=== PATIENT | female | born 1960 | race African-American/Black ===

== ENCOUNTER 2020-02-14 16:13 | Observation (INO) ==
[2020-02-14 16:59] LABS: Basophils % 0.2 % (0.0-0.8); Eosinophils # 0.1 10*3/uL (0.0-0.87); Eosinophils % 0.6 % (0.00-10.9); Hematocrit 40.1 VOL% (35.7-47.0); Hemoglobin 13.5 GM/DL (12.0-16.0); Immature Granulocytes % 0.5 %; Immature Granulocytes Absolute 0.04 #; Lymphocytes # 1.1 10*3/uL (1.4-4.0); Lymphocytes % 12.2 % (21.3-54.2); Mean Corpuscular HGB Conc 33.7 GM/DL (32-36); Mean Corpuscular Volume 85.9 FL (87-102); Mean Platelet Volume 11.7 FL (9.6-12.0); Monocytes % 12.5 % (1.7-12.7); Platelet Count 182 T/CUMM (130-400); Red Blood Count 4.67 MC/CUMM (3.8-5.5); Red Cell Distribution Width 12.5 % (9.3-17.3); White Blood Count 8.9 T/CUMM (4-12)
[2020-02-14 17:16] LABS: Alanine Aminotransferase 17 U/L (13-56); Albumin 3.2 G/DL (3.4-5.0); Alkaline Phosphatase 109 U/L (45-117); Aspartate Amino Transferase 24 U/L (0-37); Bilirubin,Total < 0.39 MG/DL (0.2-1.0); Blood Urea Nitrogen 13 MG/DL (7-18); Calcium 8.7 MG/DL (8.5-10.1); Estimated Glom Filtration Rate 110 ML/MIN; Glucose 83 MG/DL (74-106); Osmolality,Calculated 281.1 MOS/KG (273-304); Total Protein 6.8 G/DL (6.4-8.3)
[2020-02-14 17:43] LABS: PT Patient Result 10.9 SECS (9.8-11.9); Partial Thromboplastin Time 21.1 SECS (23.9-33.8)
[2020-02-14 18:10] LABS: Bilirubin,Urine Negative (Negative); Blood, Urine Negative (Negative); Glucose,Urine (UA) Negative (Negative); Ketones,Urine Negative (Negative); Nitrite,Urine Negative (Negative); Protein,Urine 30 MG/DL; RBC,Urine 1 /HPF (0-4); Urine Appearance CLEAR (Clear); Urine Color Straw (Yellow); Urine Specific Gravity 1.009 (1.001-1.035); Urine Urobilinogen < 2.0 EU/DL (0.2-1.0); WBC,Urine 2 /HPF (0-6)
[2020-02-14 18:17] LABS: Barbiturates Screen,Urine Negative (Negative); Benzodiazepines Screen,Urine Negative (Negative); Cannabinoid Screen,Urine Negative (Negative); Opiate Screen,Urine Negative (Negative); Phencyclidine Screen,Urine Negative (Negative)
[2020-02-14 18:34] LABS: Hypochromasia 1+; Microcytosis 1+
[2020-02-14 18:35] LABS: Platelet Estimate Normal
[2020-02-14] MEDS ORDERED: EPINEPHrine 1 MG/ML VIAL IM PRN (20:16)
[2020-02-14] MEDS ORDERED: predniSONE 20 MG TABLET PO STA (20:19)
[2020-02-14] MEDS ORDERED: SODIUM CHLORIDE 0.9% 1,000 ML IV SCH (20:30)
[2020-02-14] MEDS ORDERED: DEXTROSE 50% 25 GM/50 ML VIAL IV PRN (21:00)
[2020-02-14] MEDS ORDERED: ONDANSETRON 4 MG/2 ML VIAL IV PRN (21:00)
[2020-02-14] MEDS ORDERED: ENOXAPARIN 40 MG/0.4 ML SYRINGE SUBCUT SCH (21:00)
[2020-02-14] MEDS ORDERED: GLUCAGON 1 MG VIAL IM PRN (21:00)
[2020-02-14] MEDS ORDERED: ACETAMINOPHEN 325 MG TABLET PO PRN (21:00)
[2020-02-14] MEDS: diphenhydrAMINE CAP 25 MG CAPSULE PO SCH (22:21)
[2020-02-14] MEDS: FAMOTIDINE 20 MG TABLET PO SCH (22:22)
[2020-02-15] MEDS: diphenhydrAMINE CAP 25 MG CAPSULE PO SCH ×2 (04:22→09:51)
[2020-02-15 05:53] LABS: Basophils # 0.1 10*3/uL (0.0-0.2); Basophils % 1.1 % (0.0-0.8); Eosinophils # 0.2 10*3/uL (0.0-0.87); Eosinophils % 4.7 % (0.00-10.9); Hematocrit 37.6 VOL% (35.7-47.0); Hemoglobin 12.6 GM/DL (12.0-16.0); Immature Granulocytes % 0.2 %; Immature Granulocytes Absolute 0.01 #; Lymphocytes # 1.2 10*3/uL (1.4-4.0); Lymphocytes % 26.7 % (21.3-54.2); Mean Corpuscular HGB Conc 33.5 GM/DL (32-36); Mean Corpuscular Volume 86.4 FL (87-102); Mean Platelet Volume 11.8 FL (9.6-12.0); Monocytes % 11.2 % (1.7-12.7); Neutrophils % 56.1 % (38.7-73.9); Platelet Count 185 T/CUMM (130-400); Red Blood Count 4.35 MC/CUMM (3.8-5.5); Red Cell Distribution Width 12.4 % (9.3-17.3); White Blood Count 4.5 T/CUMM (4-12)
[2020-02-15 06:17] LABS: Calcium 8.6 MG/DL (8.5-10.1); Osmolality,Calculated 289.6 MOS/KG (273-304)
[2020-02-15] MEDS ORDERED: predniSONE 20 MG TABLET PO SCH (09:00)
[2020-02-15] MEDS: FAMOTIDINE 20 MG TABLET PO SCH (09:51)
[2020-02-15 15:42] VITALS: BP 137/29
== END 2020-02-15 13:55 | disposition home or self-care (01) ==
LOC: EDUNIT# → EDBD → N.ED 16:13 → N.EDINP 16:13 → N.TELES 21:14
PROVIDERS: ADMIT Internal Medicine; ATTEND Internal Medicine